=== PATIENT | female | born 1980 ===

== ENCOUNTER 2018-09-07 17:09 | Emergency (ER) | payer OTHER ==
[2018-09-07 17:09] VITALS: BMI 31.4
[2018-09-07 17:46] VITALS: PULSE 118; RESP 18; TEMP 99.2; O2SAT 99
--- NOTE | 2018-09-07 18:08 | ED PDOC ---
Arrival/HPI - General Chief Complaint: Psychiatric Evaluation Time Seen by Provider: 09/07/18 17:39 - History of Present Illness Narrative History of Present Illness (Text): 09/07/18 18:05 38 f with no significant pmhx presents to the ED for evaluation of a possible disturbance in the patient's apartment complex. Patient states that police were called to her door as since a neighbor reported that they heard loud voices coming from her apt. Patient states that the police were mistaken because she was listening to [employer] music today, was alone, was not talking on the phone. Patient's states the police were concerned the patient has furniture outside her door but she denies that the furniture is hers. Patient states the police were concerned that she had kitchen appliances in disarray but the patient reports that she has a schmidt problem. Patient denies any physical complaints, she denies si or hi, she denies visual or auditory hallucinations. Patient is calm and tells a consistent story. Past Medical History - Cardiac Hx Cardiac Disorders: No - Pulmonary Hx Respiratory Disorders: Yes Hx Asthma: Yes Other/Comment: SPONTANEOUS PNEUMOTHORAX - Neurological Hx Neurological Disorder: No - HEENT Hx HEENT Disorder: No - Renal Hx Renal Disorder: No - Endocrine/Metabolic Hx Endocrine Disorders: No - Hematological/Oncological Hx Blood Disorders: No - Integumentary Hx Dermatological Disorder: No - Musculoskeletal/Rheumatological Hx Musculoskeletal Disorders: No - Gastrointestinal Hx Gastrointestinal Disorders: No - Genitourinary/Gynecological Hx Genitourinary Disorders: No - Psychiatric Hx Psychophysiologic Disorder: Yes Hx Bipolar Disorder: Yes Hx Depression: Yes Hx Substance Use: No - Surgical History Other/Comment: CHEST TUBE - Anesthesia Hx Anesthesia: Yes Family/Social History Family/Social History: No Known Family HX Smoking Status: Light Smoker < 10 Cigarettes Daily Hx Alcohol Use: Yes Hx Substance Use: No Allergies/Home Meds Allergies/Adverse Reactions: Allergies No Known Allergies Allergy (Verified 09/07/18 17:35) Home Medications: Home Meds Medication Instructions Recorded Confirmed No Known Home Med 09/07/18 09/07/18 Review of Systems - Physician Review All systems were reviewed & negative as marked: Yes Physical Exam - Physical Exam Narrative Physical Exam (Text): 09/07/18 18:09 Gen: VS reviewed, alert, well developed, well nourished, nontoxic, mild distress Eye: EOMI, PERRL Neck: no JVD, supple CV: regular rate, regular rhythm, no rubs,no murmur, S1, S2 Pulm: no distress, clear to auscultation, no wheeze, no rhonchi, breath sounds equal, no rales Psych: responds appropriately to questions, normal affect Neuro: oriented x3, CN2-12 intact grossly, motor intact, sensation intact Vital Signs Temp Pulse Resp Pulse Ox 09/07/18 17:36 99.2 F 118 H 18 99 Medical Decision Making ED Course and Treatment: 09/07/18 18:10 patient seen for suspected disturbance in her apt complex. there is no apparent medical or psych emergency at this time. the patient is requesting that routine physical bloodwork is drawn as she recently went to her pcp for a physical. i informed the patient that i do not know what bloodwork her doctor wanted and that if any routine tests were missing that she would need to get repeat blood draw anyway. bloodwork was drawn without my knowing and is not indictated at this time. i informed the patient that unfortunately, the blood was drawn in error and that it will be discarded. Disposition/Present on Arrival - Present on Arrival Any Indicators Present on Arrival: No History of DVT/PE: No History of Uncontrolled Diabetes: No Urinary Catheter: No History of Decub. Ulcer: No History Surgical Site Infection Following: None - Disposition Have Diagnosis and Disposition been Completed?: Yes Diagnosis: Encounter for medical screening examination Disposition: HOME/ ROUTINE Disposition Time: 18:12 Patient Plan: Discharge Condition: STABLE Discharge Instructions (ExitCare): Going Home From the Hospital Referrals: Aixa Nogueira MD [Primary Care Provider] - Follow up with primary
== END 2018-09-07 18:29 | disposition home or self-care (01) ==
LOC: ED 17:09
DX: Z00.00 Encounter for general adult medical examination without abnormal findings (principal); F17.210 Nicotine dependence, cigarettes, uncomplicated

== ENCOUNTER 2019-02-19 05:56 | Emergency (ER) | payer OTHER ==
[2019-02-19 05:57] VITALS: BMI 31.4
--- NOTE | 2019-02-19 06:14 | ED PDOC ---
Arrival/HPI - General Chief Complaint: Psychiatric Evaluation Time Seen by Provider: 02/19/19 06:13 Historian: Patient, Police - History of Present Illness Narrative History of Present Illness (Text): 02/19/19 06:13 Kayla Kaplan is a 38 year old female, whose past medical history includes depression and bipolar disorder, who presents to the ED brought in by EMS/[facility] for bizarre behavior. As per collateral information, patient was found at a convenience store this morning talking to herself and was hearing voices telling her to steal things. Patient on arrival to ED states she feels fine currently and denies any complaints. Patient states she does not take any medications. Patient denies any suicidal ideation, homicidal ideation, fever, chills, chest pain, shortness of breath, nausea, vomiting, diarrhea, urinary symptoms, back pain, neck pain, headache, dizziness, or any other complaints. Symptom Onset: Gradual Symptom Course: Unchanged Activities at Onset: Light Context: Other (convenience store) Past Medical History - Provider Review Nursing Documentation Reviewed: Yes - Infectious Disease Hx of Infectious Diseases: None - Cardiac Hx Cardiac Disorders: No - Pulmonary Hx Respiratory Disorders: Yes Hx Asthma: Yes Other/Comment: SPONTANEOUS PNEUMOTHORAX - Neurological Hx Neurological Disorder: No - HEENT Hx HEENT Disorder: No - Renal Hx Renal Disorder: No - Endocrine/Metabolic Hx Endocrine Disorders: No - Hematological/Oncological Hx Blood Disorders: No - Integumentary Hx Dermatological Disorder: No - Musculoskeletal/Rheumatological Hx Musculoskeletal Disorders: No - Gastrointestinal Hx Gastrointestinal Disorders: No - Genitourinary/Gynecological Hx Genitourinary Disorders: No - Psychiatric Hx Psychophysiologic Disorder: Yes Hx Bipolar Disorder: Yes Hx Depression: Yes Hx Substance Use: No - Surgical History Other/Comment: CHEST TUBE - Anesthesia Hx Anesthesia: Yes Family/Social History - Physician Review Nursing Documentation Reviewed: Yes Family/Social History: Unknown Family HX Smoking Status: Light Smoker < 10 Cigarettes Daily Hx Alcohol Use: Yes Hx Substance Use: No Allergies/Home Meds Allergies/Adverse Reactions: Allergies No Known Allergies Allergy (Verified 09/07/18 17:35) Home Medications: Home Meds Medication Instructions Recorded Confirmed No Known Home Med 09/07/18 09/07/18 Review of Systems - Physician Review All systems were reviewed & negative as marked: Yes - Review of Systems Constitutional: Normal. absent: Fevers Eyes: Normal ENT: Normal Respiratory: Normal. absent: SOB, Cough Cardiovascular: Normal. absent: Chest Pain Gastrointestinal: Normal. absent: Abdominal Pain, Diarrhea, Nausea, Vomiting Genitourinary Female: Normal. absent: Dysuria, Frequency, Hematuria, Urine Output Changes Musculoskeletal: Normal. absent: Back Pain, Neck Pain Skin: Normal. absent: Rash Neurological: Normal. absent: Headache, Dizziness Endocrine: Normal Hemo/Lymphatic: Normal Psychiatric: Normal Physical Exam Vital Signs Reviewed: Yes Temperature: Afebrile Blood Pressure: Normal Pulse: Regular Respiratory Rate: Normal Appearance: Positive for: Well-Appearing, Non-Toxic, Comfortable Pain Distress: None Mental Status: Positive for: Alert and Oriented X 3 - Systems Exam Head: Present: Atraumatic, Normocephalic Pupils: Present: PERRL Extroacular Muscles: Present: EOMI Conjunctiva: Present: Normal Mouth: Present: Moist Mucous Membranes Neck: Present: Normal Range of Motion Respiratory/Chest: Present: Clear to Auscultation, Good Air Exchange. No: Respiratory Distress, Accessory Muscle Use Cardiovascular: Present: Regular Rate and Rhythm, Normal S1, S2. No: Murmurs Abdomen: No: Tenderness, Distention, Peritoneal Signs Back: Present: Normal Inspection Upper Extremity: Present: Normal Inspection. No: Cyanosis, Edema Lower Extremity: Present: Normal Inspection. No: Edema Neurological: Present: GCS=15, CN II-XII Intact, Speech Normal Skin: Present: Warm, Dry, Normal Color. No: Rashes Psychiatric: Present: Alert, Oriented x 3, Normal Insight, Normal Concentration Medical Decision Making ED Course and Treatment: 02/19/19 06:13 Impression: 38 year old female brought in for bizarre behavior while at a convenience store this morning. Plan: -- EKG -- Labs, alcohol level -- Urine drug screen -- Reassess and disposition Prior Visits: Notes and results from previous visits were reviewed. Progress Notes: Reviewed EKG, NSR at [address]-segment elevations or depressions, no T-wave inversions, normal intervals. 02/19/19 07:00 Case endorsed to /pending medical clearance/PES evaluation/final disposition - EKG Interpretation Interpreted by ED Physician: Yes Type: 12 lead EKG - Scribe Statement The provider has reviewed the documentation as recorded by the Najma Velazquez Provider Scribe Attestation: All medical record entries made by the Scribe were at my direction and personally dictated by me. I have reviewed the chart and agree that the record accurately reflects my personal performance of the history, physical exam, medical decision making, and the department course for this patient. I have also personally directed, reviewed, and agree with the discharge instructions and disposition. Disposition/Present on Arrival - Present on Arrival Any Indicators Present on Arrival: No History of DVT/PE: No History of Uncontrolled Diabetes: No Urinary Catheter: No History of Decub. Ulcer: No History Surgical Site Infection Following: None - Disposition Have Diagnosis and Disposition been Completed?: No Diagnosis: Bipolar disorder Disposition Time: 07:00 Condition: STABLE Forms: [employer] (Telugu)
[2019-02-19 06:46] LABS: HEMOGLOBIN 13.8 g/dL (12.0-16.0); MEAN CELL VOLUME 93.5 fl (80.0-105.0); MEAN CORPUSCULAR HEMOGLOBIN 30.9 pg (25.0-35.0); MEAN CORPUSCULAR HGB CONC 33.1 g/dl (31.0-37.0); MEAN PLATELET VOLUME 10.1 fl (7.0-11.0); RBC 4.46 10^6/uL (3.5-6.1); RED CELL DISTRIBUTION WIDTH 13.3 % (11.5-14.5); WHITE BLOOD COUNT 6.2 10^3/uL (4.5-11.0)
[2019-02-19 07:06] LABS: ALB/GLOB RATIO 1.3 (1.1-1.8); ALBUMIN 4.2 g/dL (3.0-4.8); ALT/SGPT 19 U/L (7-56); AST/SGOT 20 U/L (14-36); BLOOD UREA NITROGEN 11 mg/dL (7-21); CALCIUM 8.8 mg/dL (8.4-10.5); GFR NON-AFRICAN AMERICAN > 60
--- NOTE | 2019-02-19 07:13 | ED PDOC ---
Medical Decision Making ED Course and Treatment: 02/19/19 07:00 Case endorsed to me by Dr. Fitzgerald pending Labs, PES evaluation, reassessment and final disposition. [place] [facility] [place] 02/19/19 09:52 patient is medically stable for psych eval, admit, transfer if needed - Lab Interpretations Lab Results: Total Bilirubin 0.3 mg/dL (0.2-1.3) 02/19/19 06:25 AST 20 U/L (14-36) 02/19/19 06:25 ALT 19 U/L (7-56) 02/19/19 06:25 Alkaline Phosphatase 68 U/L (38-126) 02/19/19 06:25 Total Protein 7.4 g/dL (5.8-8.3) 02/19/19 06:25 Albumin 4.2 g/dL (3.0-4.8) 02/19/19 06:25 Globulin 3.3 gm/dL 02/19/19 06:25 Albumin/Globulin Ratio 1.3 (1.1-1.8) 02/19/19 06:25 I have reviewed the lab results: Yes - RAD Interpretation Radiology Orders: 02/19/19 06:25 CHEST PORTABLE [RAD] Stat - Scribe Statement The provider has reviewed the documentation as recorded by the Nataliibdevante Ramirez Provider Scribe Attestation: All medical record entries made by the Scribe were at my direction and personally dictated by me. I have reviewed the chart and agree that the record accurately reflects my personal performance of the history, physical exam, medical decision making, and the department course for this patient. I have also personally directed, reviewed, and agree with the discharge instructions and disposition. Disposition/Present on Arrival - Present on Arrival Any Indicators Present on Arrival: No History of DVT/PE: No History of Uncontrolled Diabetes: No Urinary Catheter: No History of Decub. Ulcer: No History Surgical Site Infection Following: None - Disposition Diagnosis: Bipolar disorder, UTI (urinary tract infection) Patient Problems: Current Active Problems Problem Status Onset Bipolar disorder Acute UTI (urinary tract infection) Acute Condition: STABLE Prescriptions: Nitrofurantoin Macrocrystals [Macrobid] 100 mg PO BID 5 Days #10 cap Referrals: Aixa Nogueira MD [Primary Care Provider] - Follow up with primary Forms: [employer] (Italian)
[2019-02-19 07:39] LABS: BARBITURATES, UR NEGATIVE (NEGATIVE); BENZODIAZEPINES, UR NEGATIVE (NEGATIVE); OPIATES, UR NEGATIVE (NEGATIVE); PHENCYCLIDINE, UR NEGATIVE (NEGATIVE)
--- NOTE | 2019-02-19 08:05 | RAD ---
Date of service: 02/19/2019 HISTORY: Medical clearance COMPARISON: No prior. TECHNIQUE: 1 view obtained. FINDINGS: LUNGS: No active pulmonary disease. PLEURA: No significant pleural effusion identified, no pneumothorax apparent. CARDIOVASCULAR: No aortic atherosclerotic calcification present. Normal cardiac size. No pulmonary vascular congestion. OSSEOUS STRUCTURES: No significant abnormalities. VISUALIZED UPPER ABDOMEN: Normal. OTHER FINDINGS: None. IMPRESSION: No active disease.
[2019-02-19 10:03] LABS: URINE BILIRUBIN NEGATIVE (NEGATIVE); URINE BLOOD SMALL (NEGATIVE); URINE GLUCOSE (UA) NEGATIVE (NEGATIVE); URINE LEUKOCYTE ESTERASE MODERATE Leu/uL (NEGATIVE); URINE PROTEIN 30 mg/dL (<30 mg/dL)
[2019-02-19 10:04] LABS: URINE APPEARANCE CLOUDY (CLEAR); URINE COLOR YELLOW (YELLOW)
[2019-02-19 10:12] LABS: URINE BACTERIA FEW /hpf; URINE EPITHELIAL CELLS MANY /hpf (0-5); URINE RBC 0 - 2 /hpf (0-2); URINE WBC TNTC /hpf (0-6)
--- NOTE | 2019-02-19 18:42 | CON ---
DATE: 02/19/2019 HISTORY OF PRESENT ILLNESS: In short, the patient is a 38-year-old female with not known previous psychiatric history. Most likely, the patient has a history of schizophrenia spectrum. The patient was brought in by [place] Police for bizarre behavior. The patient was found in a convenience store and talking to herself. Psych consult was called because the patient presented to be bizarre, refused to sign in to the Psychiatric Inpatient Unit in order to determine if the patient meets criteria for [facility] screening process. The patient was seen and examined. The patient presented to be disorganized, flat affect. The patient's answers were not related to the questions being asked. The patient was observed internally preoccupied and responding to internal stimuli. The patient does not want to be admitted to the Psychiatric Inpatient Unit, but based on presentation, Police was involved and bizarre behavior in the convenience store. This remote mortgage underwriter feels that the patient meets criteria for psychiatric admission. PHYSICAL EXAMINATION: VITAL SIGNS: Reviewed. MEDICATIONS: Reviewed. LABORATORY DATA: Labs reviewed. Urinalysis showed leukocyte esterase moderate and the patient has signs of urinary tract infection, cannabis positive in urine. Collaterals were obtained from the patient's mother by a peer worker. The patient's mother said that the patient has history of mental illness. The patient was admitted to [facility] for 2-3 months and it was 2 years ago and the patient's mother is not aware how the patient is doing right now. MENTAL STATUS EXAMINATION: The patient presented to be disengaged, flat affect, disorganized thoughts. Mood described as perfectly fine. Affect flat. Mood incongruent. Thought process disorganized, circumstantial and tangential, severe thought blocking. Thought content, the patient observed to be responding to internal stimuli and the patient is paranoid and guarded but denied hearing voices or seeing things. Insight and judgment seems to be very limited to impaired and impulses are not predictable. IMPRESSION: Most likely, the patient has schizophrenia spectrum disorder, rule out substance-induced psychosis, rule out delirium. PLAN: This remote mortgage underwriter offered the patient psychiatric admission. The patient declined that offer. But based on above, the patient meets criteria for psychiatric screening process to be initiated. Meanwhile, the patient will continue being in the emergency room. After that, disposition will be made. Thank you very much for letting me participate in care of your patient. Berna Laboy MD [facility] # [phone]
--- NOTE | 2019-02-19 19:39 | CARD ---
APPROVED REPORT Date of service: 02/19/2019 EKG Measurement Heart [id number] <Conclusion> Normal sinus rhythm Normal ECG
[2019-02-20 14:05] VITALS: TEMP 98; O2SAT 100
[2019-02-20 16:15] VITALS: BP 101/63; PULSE 84; RESP 18
--- NOTE | 2019-02-20 19:26 | PN ---
DATE: 02/20/2019 SUBJECTIVE: The patient is a 38-year-old female with reported history of bipolar disorder versus schizoaffective disorder. The patient was brought in by police because the patient was disorganized and bizarre in the community. This typewriters functional tester offered the patient admission, but the patient declined that offer. The patient was screened yesterday and was accepted for involuntary commitment. Overnight, the patient stayed in the emergency room and this typewriters functional tester is seeing the patient at the morning time. The patient presented the same way, disengaged. Thought process completely disorganized. No meaningful conversation possible. Please see yesterday's note for more detailed information. Vital signs reviewed. Medications reviewed. Microbiology reviewed, , the patient had urinary tract infection. MENTAL STATUS EXAM: The patient presented to be alert, disengaged, intense eye contact. Mood described as fine. Affect flat. Thought process disorganized and severe thought blocking. Thought content, the patient denied visual, auditory or tactile hallucinations, but at the same time, the patient presented to be responding to internal stimuli and no meaningful conversation possible due to thought process disorganized. Moreover, the patient reported voices commanding her to steal stuff, that is why she was brought in by police to the emergency room. Insight and judgment seems to be severely impaired. Impulses are unpredictable. IMPRESSION: As per history, bipolar disorder versus schizoaffective disorder. PLAN: The patient is waiting for bed to be available at [facility]. The patient was accepted for involuntary commitment screening. Meanwhile, if the patient will be in the emergency room, Dr. Reese will followup on this patient tomorrow. Thank you very much for letting me participate in the care of your patient. Berna Laboy MD
== END 2019-02-20 16:32 | disposition short-term general hospital (02) ==
LOC: ED 05:56
DX: F31.9 Bipolar disorder, unspecified (principal); N39.0 Urinary tract infection, site not specified